=== PATIENT | male | born 2000 | race Caucasian/White ===

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

== ENCOUNTER 2021-02-04 03:19 | Inpatient (IN) ==
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
[2021-02-04] MEDS ORDERED: ACETAMINOPHEN 500 MG TAB PO STA (03:47)
[2021-02-04 04:15] LABS: Basophils # (auto) 0.01 K/uL (0-0.2); Basophils % (auto) 0.1 %; Eosinophils # (auto) 0.17 K/uL (0-0.5); Eosinophils % (auto) 2.1 %; Hematocrit (blood only) 43.9 % (42-52); Hemoglobin 15.6 g/dL (14.0-18.0); Immature Granulocytes # (auto) 0.03 K/uL (0.00-0.02); Immature Granulocytes % (auto) 0.4 %; Lymphocytes # (auto) 2.72 K/uL (1.2-3.4); Lymphocytes % (auto) 33.1 %; Mean Corpuscular Hemoglobin 29.2 pg (25-34); Mean Corpuscular Hgb Conc 35.5 g/dL (32-36); Mean Corpuscular Volume 82.2 fL (80-100); Mean Platelet Volume 9.7 fL (7.4-10.4); Monocytes # (auto) 0.63 K/uL (0.11-0.59); Monocytes % (auto) 7.7 %; Neutrophils # (auto) 4.65 K/uL (1.4-6.5); Neutrophils % (auto) 56.6 %; Platelet Count 258 K/uL (130-400); RDW Coefficient of Variation 12.8 % (11.5-14.5); RDW Standard Deviation 38.3 fL (36.4-46.3); Red Blood Count 5.34 M/uL (4.7-6.1); White Blood Count 8.21 K/uL (4.8-10.8)
[2021-02-04 04:23] LABS: Appearance Urine Clear (Clear); Bilirubin Urine Negative (Negative); Blood Urine Negative (Negative); Color Urine Yellow; Glucose Urine UA Negative (Negative); Ketones Urine Negative (Negative); Leukocyte Esterase Urine Negative (Negative); Nitrite Urine Negative (Negative); Protein Urine Negative (Negative); Specific Gravity Urine 1.019 (1.000-1.030); Urobilinogen Urine Negative (Negative); pH Urine 5.5 (4.5-7.5)
[2021-02-04 04:56] LABS: Albumin Level 3.8 gm/dl (3.4-5.0); BUN Creatinine Ratio 11.9 (10-20); Calcium 8.7 mg/dl (8.5-10.1); Creatinine Clr Calc Pharmacy 136.6 ml/min; Est GFR (African American) 100.9; Est GFR (Non-African American) 87.1; Potassium 3.7 mmol/L (3.5-5.1)
[2021-02-04 05:06] LABS: Bilirubin,Total 0.7 mg/dl (0.2-1); Globulin 3.7 gm/dl (2.5-4.0); Thyroid Stimulating Hormone 3.89 uIu/ml (0.300-4.500); Total Protein 7.5 gm/dl (6.4-8.2)
[2021-02-04 05:07] LABS: Amphetamines+Metham, Urine Pos (Neg); Barbiturates, Urine Neg (Neg); Benzodiazepine, Urine Neg (Neg); Cocaine, Urine Neg (Neg); MDMA (Ecstacy), Urine Pos (Neg); Methadone, Urine Neg (Neg); Opiate, Urine Neg (Neg); Phencyclidine, Urine Neg (Neg)
[2021-02-04 05:18] LABS: Acetaminophen < 2 ug/ml (10-30); Salicylate < 1.7 mg/dl (2.8-20)
[2021-02-04] MEDS ORDERED: ALUMINUM/MAGNESIUM SUSP 30 ML UDC PO PRN (07:06)
[2021-02-04] MEDS ORDERED: MAGNESIUM HYDROXIDE SUSP 30 ML UDC PO PRN (07:06)
[2021-02-04] MEDS ORDERED: BISMUTH SUBSALICYLATE LIQD 236 ML PO PRN (07:06)
[2021-02-04] MEDS ORDERED: ACETAMINOPHEN 325 MG TAB PO PRN (07:06)
[2021-02-04] MEDS ORDERED: SODIUM CHLORIDE 0.65% NA SOLN 45 ML (OCEAN) PRN (07:06)
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
[2021-02-04] MEDS: buPROPion XL 300 MG TABCR PO SCH (12:15)
[2021-02-04] MEDS: BACITRACIN OINT 15 GM TUBE EXT SCH ×2 (15:10→21:20)
[2021-02-05] MEDS: hydrOXYzine HCl 25 MG TAB PO PRN (00:40)
[2021-02-05 08:37] LABS: Glucose Fasting 94 mg/dl (70-99)
[2021-02-05 08:44] LABS: Chol HDL Ratio 5; Cholesterol 192 mg/dl (0-200); HDL Cholesterol 36 mg/dl; LDL Cholesterol Calculated 131 mg/dl; Triglycerides 125 mg/dl (0-150); VLDL Cholesterol 25 mg/dl
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
[2021-02-05] MEDS: BACITRACIN OINT 15 GM TUBE EXT SCH ×2 (08:57→19:24)
[2021-02-05] MEDS: CARIPRAZINE HCL PO SCH (08:58)
[2021-02-05] MEDS: buPROPion XL 300 MG TABCR PO SCH (08:58)
--- NOTE | 2021-02-05 10:49 | Communication Note ---
Date of Service: February 05, 2021 Outpatient Psychiatric Records Received and Reviewed from [facility]: - No listed diagnoses Medications: - Wellbutrin XL 300mg qAM - Seroquel 100mg qHS (decreased from 200mg) - Vyvanse 40mg - use as needed for inattention with schoolwork 01/29/21 - Reported continued forgetfulness regarding completing lab work. Reported low mood, but denied "significant suicidal thoughts". Continued to report desire to cut back on marijuana use. - Consider switching to Vraylar if prescription is covered. 01/21/21 - Pt reported plans to withdraw from the semester. Mood reportedly improved when actively around other people, but gets lower when going home for the evening. - Continue medications 01/13/21 - Pt reported he is doing "really, really bad" - gathering up things in his apartment he had been tempted to use to harm himself and giving them to his roommate. Has been using the Crisis text line. Pt reported getting further behind in classes. Voluntary hospital admission was suggested. - Continue medications, safety planning recommendations See scanned in records for additional documentation from appointments dating 06/03/2020 - 12/30/2020.
[2021-02-06] MEDS: hydrOXYzine HCl 25 MG TAB PO PRN ×2 (00:06→21:01)
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
[2021-02-06] MEDS: CARIPRAZINE HCL PO SCH (09:55)
[2021-02-06] MEDS: buPROPion XL 300 MG TABCR PO SCH (09:55)
[2021-02-06] MEDS: BACITRACIN OINT 15 GM TUBE EXT SCH ×2 (10:01→21:13)
[2021-02-06 11:23] LABS: Amphetamine Urine, Confirm 857 ng/mL (<250); MDA negative; MDEA negative; MDMA (Ecstasy) Urine, Confirm negative; Marijuana Quant, GCMS Urine 45 ng/mL (<5); Methamphetamine, Ur Confirm NEGATIVE ng/mL (<250)
[2021-02-07] MEDS: hydrOXYzine HCl 25 MG TAB PO PRN (04:04)
[2021-02-07] MEDS: BACITRACIN OINT 15 GM TUBE EXT SCH ×2 (09:20→21:32)
[2021-02-07] MEDS: buPROPion XL 300 MG TABCR PO SCH (09:23)
[2021-02-07] MEDS: CARIPRAZINE HCL PO SCH (09:23)
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
[2021-02-07] MEDS ORDERED: MELATONIN 3 MG TAB PO SCH (22:00)
[2021-02-08] MEDS: hydrOXYzine HCl 25 MG TAB PO PRN (05:28)
[2021-02-08] MEDS: CARIPRAZINE HCL PO SCH (09:08)
[2021-02-08] MEDS: BACITRACIN OINT 15 GM TUBE EXT SCH (09:09)
[2021-02-08] MEDS: buPROPion XL 300 MG TABCR PO SCH (09:10)
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
== END 2021-02-08 13:05 | disposition home or self-care (01) | DRG 885 ==
LOC: ED 03:19 → 3S 06:28